=== PATIENT | male | born 1935 | race Caucasian/White ===

== ENCOUNTER 2017-06-20 11:26 | Outpatient (CLI) | payer MEDICARE, OTHER ==
[~2017-06-20] VITALS: Ht 181.6 cm; Wt 83.6 kg
--- NOTE | ~2017-06-20 | OP ---
PATIENT NAME: ROSAURA HOLT MEDICAL RECORD: [id number] :35 LOCATION:D.M2 D.2118 ADMISSION DATE: SURGEON: KYLE CUEVA MD OPERATION DATE: 06/20/17 DATE OF OPERATION: 06/20/2017 PREOPERATIVE DIAGNOSIS: Pacemaker generator at end of life. POSTOPERATIVE DIAGNOSIS: Pacemaker generator at end of life with fractured lead. PROCEDURE: Placement of single lumen pacemaker. SURGEON: Kyle Cueva MD. WEBSITE DESIGNER: None. BLOOD LOSS: Minimal. PROCEDURE IN DETAIL: This patient's pacemaker generator is at the end of life. I was asked by Dr. Mccann to change out the pacemaker generator. IV sedation was induced by the nursing staff under my direction. A local anesthetic was used to infiltrate the skin and subcutaneous tissues of the left chest after sterile prep and drape. I incised down to the pacemaker generator itself. I entered the pacemaker pocket. I delivered the pacemaker. However, we could not get the wrench to loosen up on the pacemaker wire. We tried a number of techniques and it took about 45 minutes, but we used a variety of curettes, Roverto wrenches, pacemaker wrenches even some neuro wrenches and despite all of these unorthodox attempts, we were unable to get the lead out. So, what we did was we fractured the clear part of the pacemaker generator at the top. We kept removing pieces of the plastic type material until we got down to the lead. By this time, the lead was fractured. We contacted Dr. Mccann and told him about this. I then went about placing a new lead. I kept off the pacemaker lead using one of the caps and I tied it in place. I then accessed the left subclavian vein in an antegrade fashion. A guidewire passed easily. A 7-English dilator sheath was advanced. The dilator and wire were removed. Through the sheath, I advanced a ventricular lead. I then formed the wire. I placed the lead in the pulmonary artery outflow tract. I then placed a straight wire through the lead and then pulled back the tip of the lead into the right ventricle and then was able to advance in to the apex of the right ventricle. Appropriate thresholds were obtained. I then sutured the lead in place with 2-0 TiCron times 2. Another 2-0 TiCron was used around the lead medially to prevent backbleeding. I then placed the pacemaker lead in the pacemaker generator. I tightened down on the lead. I could not dislodge the lead. I then irrigated in the subcutaneous pocket. Pacemaker was placed in subcutaneous pocket with care paid to place the leads posterior to the pacemaker. I then closed in multiple layers. The deep adipose tissue was closed with interrupted 3-0 Vicryls. Subcutaneous adipose tissue was closed with interrupted 3-0 Vicryls. The skin was closed with a running intracuticular 3-0 Vicryl. A sterile dressing was applied. The patient is going to be observed overnight in the hospital as a new pacemaker has been placed. OPERATIVE REPORT [id number] ROSAURA HOLT TRANSINT:[id number] Voice Confirmation ID: [id number] DOCUMENT ID: [id number] KYLE CUEVA MD CC: TEE ROTHMAN MD [id number] DICTATION DATE: 06/20/171958 INFORMATION TECHNOLOGY SECURITY ANALYST: 06/20/172218 [facility] [address] [place] [address]
--- NOTE | ~2017-06-20 | HEMODYNAMI ---
PATIENT:ROSAURA HOLT MEDICAL RECORD: [id number] : 35 LOCATION:D.CAT ADMISSION DATE: 06/20/17 Generatedon:06/20/201719:02 Patient name: ROSAURA HOLT Patient #: [id number] SSN: : 1935 Date of study: 06/20/2017 Page: Of Hemodynamic Procedure Report Patient Data Patient Demographics Procedure consent was obtained First Name: ROSAURA Gender: Male Last Name: JONATHON : 1935 Middle Initial: V Age: 82 year(s) Patient #: [id number] Race: Unknown Additional ID: [id number] Contact details [address]: [address] [place] [address] State: [place] City: [place] Zip code: [address] Admission Admission Data Admission Date: 06/20/2017 Admission Time: 11:26 Procedure Procedure Types Cath Procedure Diagnostic Procedure PPM/ICD PPM Ventricular Implant Procedure Description Procedure Date Procedure Date: 06/20/2017 Procedure Start Time: 17:30 Procedure End Time: 19:01 Procedure Staff Name Function Sam Dickson MD Assisting physician Subhash Collado RN Nurse Bautista Paniagua RT Scrub Atul Gordon RT Monitor Som Santizo MD Performing Physician Procedure Data Cath Procedure Fluoroscopy Diagnostic fluoroscopy Total fluoroscopy Time: 1.7 time: 1.7 min min Diagnostic fluoroscopy Total fluoroscopy dose: dose: 63.06 mGy 63.06 mGy Contrast Material Contrast Material Type Amount (ml) Isovue 300 0 Estimated blood loss: 5 ml Procedure Complications No complications Procedure Medications Medication Administration Route Dosage Oxygen NC 2 l/min Lidocaine 1% with added to field 20 ml Epi Bupivacaine 0.5% S.Q. 10 ml Vancomycin I.V.P.B 1 g Vancomycin Topical 1 g Irrigation Versed I.V. 1 mg Fentanyl I.V. 50 mcg Versed I.V. 1 mg Fentanyl I.V. 50 mcg Versed I.V. 1 mg Fentanyl I.V. 50 mcg Versed I.V. 1 mg Fentanyl I.V. 50 mcg Hemodynamics Rest Pre Cath Intra NCS Post Cath Vital Signs Time Heart Resp SPO2 NIBP (mmHg) Rhythm Pain Sedation Rate (ipm) (%) Status Level (bpm) 17:25:06 59 15 100 134/77(116) Paced 0 (11) 10(A) , No pain 17:29:16 60 17 99 117/71(101) Paced 0 (11) 10(A) , No pain 17:33:30 61 15 96 119/73(104) Paced 0 (11) 10(A) , No pain 17:37:34 53 16 96 107/69(92) Paced 0 (11) 10(A) , No pain 17:41:46 57 17 96 103/64(87) NSR 0 (11) 10(A) , No pain 17:46:00 59 14 95 109/55(79) NSR 0 (11) 10(A) , No pain 17:50:12 51 15 95 98/62(76) NSR 0 (11) 10(A) , No pain 17:54:22 56 16 96 105/57(80) NSR 0 (11) 10(A) , No pain 17:58:28 60 21 98 107/67(98) NSR 0 (11) 10(A) , No pain 18:02:42 64 16 96 98/62(87) NSR 0 (11) 10(A) , No pain 18:06:55 58 16 95 93/51(81) NSR 0 (11) 10(A) , No pain 18:11:05 53 15 96 113/54(85) NSR 0 (11) 9(A) , No pain 18:15:19 53 17 96 120/69(109) NSR 0 (11) 9(A) , No pain 18:19:33 57 14 95 112/61(89) NSR 0 (11) 9(A) , No pain 18:23:43 56 18 95 112/75(99) NSR 0 (11) 9(A) , No pain 18:27:53 54 18 95 116/66(103) NSR 0 (11) 9(A) , No pain 18:32:05 55 16 96 112/62(90) NSR 0 (11) 9(A) , No pain 18:36:17 49 14 96 117/69(107) NSR 0 (11) 9(A) , No pain 18:40:31 60 15 96 114/67(97) NSR 0 (11) 10(A) , No pain 18:44:45 60 16 96 116/68(99) NSR 0 (11) 10(A) , No pain 18:48:59 76 16 97 119/68(100) NSR 0 (11) 10(A) , No pain 18:53:11 98 134/76(116) NSR 0 (11) 10(A) , No pain 18:57:11 No Cuff NSR 0 (11) 10(A) , No pain 19:01:10 No Cuff NSR 0 (11) 10(A) , No pain Medications Time Medication Route Dose Verified Delivered Reason Notes Effectiv eness by by 17:20:05 Vancomycin I.V.P.B 1 g Buffie Sam used for Collado RN Breving procedure 17:21:17 Vancomycin Topical 1 g Buffie Sam used for Irrigation Collado RN Breving procedure 17:26:10 Oxygen NC 2 Buffie Buffie used for l/min Collado RN Collado sugar chipper machine operator 17:28:39 Versed I.V. 1 mg Buffie Buffie for Collado RN Collado RN sedation 17:28:48 Fentanyl I.V. 50 Buffie Buffie for mcg Collado RN Collado RN sedation 17:30:31 Lidocaine added 20 ml Buffie Buffie for local 1% with Epi to Collado RN Collado RN anesthetic field 17:30:48 Bupivacaine S.Q. 10 ml Buffie Sam for local 0.5% Collado RN Breving anesthetic 17:39:31 Versed I.V. 1 mg Buffie Buffie for Collado RN Collado RN sedation 17:39:36 Fentanyl I.V. 50 Buffie Buffie for mcg Collado RN Collado RN sedation 17:59:50 Versed I.V. 1 mg Buffie Buffie for Collado RN Collado RN sedation 17:59:54 Fentanyl I.V. 50 Buffie Buffie for mcg Collado RN Collado RN sedation 18:17:44 Versed I.V. 1 mg Buffie Buffie for Collado RN Collado RN sedation 18:17:48 Fentanyl I.V. 50 Buffie Buffie for mcg Collado RN Collado RN sedation Procedure Log Time Note 17:00:57 Atul MORALES(R) sent for patient. Start room use. 17:05:58 Time tracking: Regular hours 17:06:02 Plan of Care:Hemodynamics will remain stable., Cardiac rhythm will remain stable., Comfort level will be maintained., Respiratory function will remain adequate., Patient/ family verbilizes understanding of procedure., Procedure tolerated without complication., Recovers from procedure without complications.. 17:15:36 Patient received from Pre/Post Procedure Room to [facility] 3 Alert and oriented. Tansferred to table in Supine position. 17:15:37 Warm blankets applied, and cadence hugger turned on for patient comfort. 17:15:38 Correct patient and procedure confirmed by team. 17:15:39 Signed procedure consent form obtained from patient. 17:15:41 ECG and BP/O2 sat monitors applied to patient. 17:15:42 Full Disclosure recording started 17:20:05 Vancomycin 1 g I.V.P.B was administered by Sam Dickson MD; used for procedure; 17:21:17 Vancomycin Irrigation 1 g Topical was administered by Sam Dickson MD; used for procedure; 17:23:54 Vital chart was started 17:24:19 Rhythm: paced 17:24:40 H&P Date Dictated: 06/12/2017 Within 30 days and on chart., H&P Addendum completed by physician on day of procedure. (MUST COMPLETE FOR ALL OUTPATIENTS). 17:24:41 Pre-procedure instructions explained to patient. 17:24:41 Pre-op teaching completed and patient verbalized understanding. 17:24:44 Family in waiting room. 17:24:46 Patient NPO since Midnight. 17:24:49 Is the patient allergic to Iodine/contrast media? No. 17:25:20 Is patient on blood thinner?No 17:25:28 Patient diabetic? No. 17:25:31 Previous problem with sedation/anesthesia? No ? 17:25:34 Snore? Yes 17:25:35 Sleep apnea? No 17:25:36 Deviated septum? No 17:25:37 Opens mouth fully? Yes 17:25:39 Sticks out tongue? Yes 17:25:40 Airway obstruction? No ? 17:25:42 Dentures? No ? 17:25:46 Patient pain scale 0/10 ?. 17:25:55 Medtronic fundraising sale representative Ilan Garnica present for procedure. 17:26:10 Oxygen 2 l/min NC was administered by Subhash Collado RN; used for procedure; 17:26:14 IV patent on arrival in left forearm with 0.9% NaCl at [facility]. 17:26:15 Lab results completed and on chart. 17:26:20 Left chest area was prepped with chlora-prep and draped in sterile fashion 17:26:22 Alarms reviewed by R. N. 17::23 Sharps counted by scrub and verified by R.N. 17: --------ALL STOP TIME OUT------ 17:: Final Timeout: patient, procedure, and site verified with staff and physician. All members of the team are in agreement. 17::30 Left chest site verified by team. 17::36 Physical assessment completed. ASA score P 2 - A patient with mild systemic disease as per Sam Dickson MD. 17:26:39 Sedation plan: IV Moderate Sedation Versed, Fentanyl 17:27:12 Pre sharps counted by scrub and verified by RN: Sutures: 9 Sponges: 5 Stick needles: 0 Skin needles: 2 Blade: 1 Cautery: 1 17:27:20 Grounding pad site Left thigh. 17:27:21 Grounding pad site free from injury. 17:27:46 3.0 Vicryl Multipack [id number] opened to sterile field. 17:27:47 3.0 Vicryl Single Pack [id number] opened to sterile field. 17:28:02 Mepilex Dressing opened to sterile field. 17:28:39 Versed 1 mg I.V. was administered by Subhash Collado RN; for sedation; 17::48 Fentanyl 50 mcg I.V. was administered by Subhash Collado RN; for sedation; 17:30:31 Lidocaine 1% with Epi 20 ml added to field was administered by Subhash Collado RN; for local anesthetic; 17:30:44 Procedure started. 17:30:48 Bupivacaine 0.5% 10 ml S.Q. was administered by Sam Dickson MD; for local anesthetic; 17:31:14 Lidocaine 1% w/epi and Bupivacaine 0.5% to left subclavicular area by Sam Dickson MD. 17:31:49 Incision made to left subclavicular area. 17:34:14 Stagend.coma PPM Single Generator opened to sterile field. 17:35:14 Generator pocket made/opened. 17:39:31 Versed 1 mg I.V. was administered by Subhash Collado RN; for sedation; 17:39:36 Fentanyl 50 mcg I.V. was administered by Subhash Collado RN; for sedation; 17:53:46 Difficulty in removing Lead from Generator. Retrieving another tray from sterile processing, in attempt to find a larger screwdriver to loosen the lead from old generator. 17:59:50 Versed 1 mg I.V. was administered by Subhash Collado RN; for sedation; 17:59:54 Fentanyl 50 mcg I.V. was administered by Subhash Collado RN; for sedation; 18:17:44 Versed 1 mg I.V. was administered by Subhash Collado RN; for sedation; 18:17:48 Fentanyl 50 mcg I.V. was administered by Subhash Collado RN; for sedation; 18:24:25 Lead was damaged in attempt to remove from old generator. Moving forward in gaining subclavian access and placing new lead. 18:24:37 Left subclavian vein accessed with 7Fr Safe Sheath. 18:26:50 Ventricular lead inserted and advanced. 18:28:19 Medtronic 4092-52 PPM Lead opened to sterile field. 18:29:44 Peel-a-way sheath was split and removed. 18:29:53 Ventricular lead positioned. 18:30:52 Ventricular lead tested. 18:34:15 2.0 Ticron Multipack opened to sterile field. 18:34:31 Ventricular lead attachment was completed with 2-0 ticron. 18:34:35 Old V lead capped and placed into pocket. 18:35:24 PPM Single was attached to lead(s) and inserted into pocket. 18:35:28 Generator was sutured in place with 2-0 ticron. 18:38:01 Device pocket was irrigated with Vancomycin. 18:38:18 Subcutaneous closure was completed with 3-0 vicryl. 18:38:34 Parameters-- Generator: Mode: Demand. Lower Rate: 60bpm. Upper Rate: 130bpm. 18:38:59 Parameters--Ventricular P/R Wave: 13.8mV. Current: 0.1mA; Threshold: 0.5V; Impedence: 577OHMS. 18:40:23 Skin closure was completed with 3-0 vicryl. 18:47:49 Lt Chest incision was dressed with Mepilex dressing. 18:48:18 Procedure ended.(Physican Out) 18:52:42 Fluoroscopy time 01.70 minutes. 18:52:46 Fluoroscopy dose: 63.06 mGy 18:52:46 Flurop Dose total: 63.06 18:52:49 Contrast amount:Isovue 300 0ml. 18:52:55 Sharps counted by scrub and verified by R.N. 18:53:18 Post sharps counted by scrub and verified by RN: Sutures: 14 Sponges: 5 Stick needles: 1 Skin needles: 2 Blade: 1 Cautery: 1 18:53:35 Insertion/operative site no bleeding no hematoma. 18:53:39 Post Procedure Pulses reassessed and unchanged 18:53:44 Post-procedure physical assessment completed. ASA score P 2 - A patient with mild systemic disease as per Sam Dickson MD. 18:53:46 Post procedure rhythm: paced 18:53:51 Estimated blood loss: 5 ml 18:53:53 Post procedure instruction explained to patient.Patient verbalizes understanding. 18:53:53 Patient needs reinforcement of post procedure teaching. 19:00:43 Procedure type changed to Cath procedure, Diagnostic procedure, PPM/ICD, PPM Ventricular Implant 19:00:55 Vital chart was stopped 19:01:11 Procedure Complication : No complications 19:01:36 Procedure and supply charges have been captured, reviewed, submitted and are correct. 19:01:38 See physician's report for complete and final results. 19:01:39 Report given to PCU. 19:01:44 Patient transfered to PCU with Bed. 19:01:46 Procedure ended. 19:01:46 Full Disclosure recording stopped 19::53 End room use (Document Last) Device Usage Item Name Manufacture Quantity Catalog Hospital Part Current Minimal Lo t# / Number Charge Number Stock Stock Serial# Code 3.0 Ethicon 1 [id number] 5 Vicryl Multipack [id number] 3.0 Ethicon 1 [id number] 367031 192563 5 Vicryl Single Pack [id number] Mepilex Cardinal 1 [id number] [id number] [id number] 5 [facility] Medtronic Medtronic 1 [id number] [id number] 5 NW [id number] Adapta EX P PPM Single Generator Medtronic Medtronic 1 [id number] 072465 766371 5 LE [id number] EX P PPM Lead 2.0 Ethicon 7 [id number] 164261 43544 386866 5 Ticron Multipack Signature Audit [place] Stage Time Signature Unsigned Intra-Procedure 06/20/2017 Atul Gordon 7:02:30 PM RT(R) Signatures Monitor : Atul Gordon RT Signature : Date : Time : [address] [address]
[2017-06-20] MEDS ORDERED: LISINOPRIL5 MG PO (11:57)
[2017-06-20] MEDS ORDERED: ZOCOR40 MG PO (11:58)
[2017-06-20] MEDS ORDERED: GLUCOPHAGE500 MG PO (11:58)
[2017-06-20] MEDS ORDERED: BAYER CHEWABLE81 MG PO (11:59)
[2017-06-20] MEDS ORDERED: MULTIPLE VITAMI1 TA1 PO (12:00)
[2017-06-20 12:21] VITALS: BP 112/68; BMI 25.3
[2017-06-20 12:23] LABS: HEMATOCRIT 38.8 % (42.0-54.0); HEMOGLOBIN 12.8 g/dL (13.5-17.5); MCH 31.3 pg (26.0-34.0); MCV 94.9 fL (80.0-100.0); MEAN PLATELET VOLUME 9.8 fL (7.4-10.4); RBC 4.09 10x6/uL (4.20-6.10); RDW 12.9 % (11.5-14.5); WBC 5.3 10x3/uL (4.8-10.8)
[2017-06-20 12:42] LABS: CALC OSMOLALITY 283 mosm/kg (275-300); CALCIUM 8.4 mg/dL (8.5-10.1); CHLORIDE - SERUM 106 mmol/L (98-107); CREATININE - SERUM 0.7 mg/dL (0.6-1.3); GLUCOSE 96 mg/dL (74-106); POTASSIUM - SERUM 4.3 mmol/L (3.5-5.1); SODIUM 141 mmol/L (136-145); UREA NITROGEN 21 mg/dL (7-18); eGFR NON AFRICAN AMERICAN > 90 mL/min (90-120)
[2017-06-20 12:52] LABS: APTT 27.9 SECONDS (22.8-39.4); INR 1.01 (0.85-1.17); PROTIME 13.2 SECONDS (11.6-15.0)
--- NOTE | 2017-06-20 19:56 | NUR ---
ARRIVED TO UNIT POST PACEMAKER PLACEMENT. MONIOTR SHOWS AFIB WITH PACED @ 60. L CHEST DRESSING CLEAN AND DRY. IV INFUSING WELL. L ARM IN SLING. AWAKE AND ALERT.
[2017-06-20 20:38] VITALS: BP 135/73; Ht 181.6 cm; Wt 83.6 kg
[2017-06-21 00:17] VITALS: BP 100/56
[2017-06-21 04:46] VITALS: BP 101/63
--- NOTE | 2017-06-21 05:29 | NUR ---
PT HAS BEEN SLEEPING. NO CHANGE IN MONITOR. DRESSING REMAINS CLEAN AND DRY.
[2017-06-21 08:19] VITALS: BP 120/68
[2017-06-21] MEDS ORDERED: HYDROCODON-ACE1 EAC7 PO (09:18)
--- NOTE | 2017-06-21 11:04 | NUR ---
IV AND TELEMETRY DCD. DC PLANS GIVEN. UNDERSTANDING VOICED. ESCORTED TO CAR BY W/C.
== END 2017-06-21 11:05 | disposition home or self-care (01) ==
LOC: D.CATH 11:26 → D.M2 19:17 → D.CATH 06-21 11:05
PROVIDERS: Internal Medicine Cardiovascular Disease
DX: Z45.010 Encounter for checking and testing of cardiac pacemaker pulse generator [battery] (principal); T82.110A Breakdown (mechanical) of cardiac electrode, initial encounter; Z01.812 Encounter for preprocedural laboratory examination

== ENCOUNTER 2018-01-06 08:10 | Emergency (ER) | payer MEDICARE, OTHER ==
[2017-06-20 20:38] VITALS: BMI 25.3
[~2018-01-06 08:10] MED LIST: BAYER CHEWABLE81 MG PO; GLUCOPHAGE500 MG PO; HYDROCODON-ACE1 EAC7 PO; LISINOPRIL5 MG PO; MULTIPLE VITAMI1 TA1 PO; ZOCOR40 MG PO
== END 2018-01-06 09:00 | disposition home or self-care (01) ==
LOC: D.ER 08:10
DX: S52.531A Colles' fracture of right radius, initial encounter for closed fracture (principal); W19.XXXA Unspecified fall, initial encounter; Y93.9 Activity, unspecified; Y92.019 Unspecified place in single-family (private) house as the place of occurrence of the external cause; E11.9 Type 2 diabetes mellitus without complications; I10 Essential (primary) hypertension

== ENCOUNTER 2018-01-08 09:16 | Emergency (ER) | payer MEDICARE, OTHER ==
[2017-06-20 20:38] VITALS: BMI 25.3
== END 2018-01-08 11:26 | disposition left against medical advice (07) ==
LOC: D.ER 09:16
DX: S69.91XA Unspecified injury of right wrist, hand and finger(s), initial encounter (principal); X58.XXXA Exposure to other specified factors, initial encounter; Y93.9 Activity, unspecified; Y92.9 Unspecified place or not applicable

== ENCOUNTER 2018-05-18 07:23 | Emergency (ER) | payer MEDICARE, OTHER ==
[~2018-05-18] VITALS: Ht 181.6 cm; Wt 75.0 kg
[2018-05-18 07:33] VITALS: Ht 181.6 cm; Wt 75.0 kg
[2018-05-18 09:01] VITALS: BP 130/78
== END 2018-05-18 09:00 | disposition home or self-care (01) ==
LOC: D.ER 07:23
DX: K59.00 Constipation, unspecified (principal)

== ENCOUNTER 2018-06-28 19:52 | Emergency (ER) | payer MEDICARE, OTHER ==
[~2018-06-28] VITALS: Ht 181.6 cm; Wt 86.4 kg
[2018-06-28 20:01] VITALS: Ht 181.6 cm; Wt 86.4 kg
[2018-06-28 21:01] LABS: BASOPHILS 0.7 % (0-2); EOSINOPHILS 7.7 % (0-7); HEMATOCRIT 39.9 % (42.0-54.0); HEMOGLOBIN 13.6 g/dL (13.5-17.5); IMMATURE GRANULOCYTES 0.1 % (0-5); LYMPHOCYTES 32.2 % (15-50); MCH 32.3 pg (26.0-34.0); MCHC 34.1 g/dL (31.0-37.0); MCV 94.8 fL (80.0-100.0); MEAN PLATELET VOLUME 9.5 fL (7.4-10.4); MONOCYTES 10.7 % (2-11); NEUTROPHILS 48.6 % (40-80); PLATELET COUNT 174 10x3/uL (130-400); RBC 4.21 10x6/uL (4.20-6.10); RDW 12.9 % (11.5-14.5); WBC 6.7 10x3/uL (4.8-10.8)
[2018-06-28 21:46] LABS: ALBUMIN 3.6 g/dL (3.4-5.0); ANION GAP 9.6 mmol/L (8-16); BILIRUBIN - TOTAL 0.9 mg/dL (0.2-1.3); CALCIUM 8.7 mg/dL (8.5-10.1); CARBON DIOXIDE 31.6 mmol/L (21.0-32.0); CREATININE - SERUM 1.2 mg/dL (0.6-1.3); POTASSIUM - SERUM 4.2 mmol/L (3.5-5.1); PROTEIN - SERUM 6.7 g/dL (6.4-8.2)
[2018-06-28] MEDS ORDERED: MIRALAX527 GM PO (23:38)
[2018-06-28] MEDS ORDERED: STOOL SOFTENER240 MG PO (23:43)
[2018-06-28 23:54] VITALS: BP 132/78
== END 2018-06-28 23:54 | disposition home or self-care (01) ==
LOC: D.ER 19:52
PROVIDERS: Family Medicine
DX: K59.00 Constipation, unspecified (principal); I10 Essential (primary) hypertension

== ENCOUNTER 2019-03-24 04:44 | Emergency (ER) | payer MEDICARE, OTHER ==
[~2019-03-24] VITALS: Ht 181.6 cm; Wt 79.4 kg
[~2019-03-24 04:44] MED LIST changes: +MIRALAX527 GM PO; +STOOL SOFTENER240 MG PO
[2019-03-24 04:50] VITALS: Ht 181.6 cm; Wt 79.4 kg
[2019-03-24 05:41] LABS: BASOPHILS 0.7 % (0-2); EOSINOPHILS 8.5 % (0-7); HEMATOCRIT 39.7 % (42.0-54.0); HEMOGLOBIN 13.8 g/dL (13.5-17.5); IMMATURE GRANULOCYTES 0.2 % (0-5); LYMPHOCYTES 29.6 % (15-50); MCHC 34.8 g/dL (31.0-37.0); MCV 92.1 fL (80.0-100.0); MEAN PLATELET VOLUME 9.5 fL (7.4-10.4); MONOCYTES 13.1 % (2-11); NEUTROPHILS 47.9 % (40-80); RBC 4.31 10x6/uL (4.20-6.10); RDW 12.6 % (11.5-14.5); WBC 5.5 10x3/uL (4.8-10.8)
[2019-03-24 05:46] LABS: PLATELET COUNT 138 10x3/uL (130-400)
[2019-03-24 06:02] LABS: ALBUMIN 3.9 g/dL (3.4-5.0); ANION GAP 13.8 mmol/L (8-16); BILIRUBIN - TOTAL 0.76 mg/dL (0.2-1.3); CALCIUM 8.7 mg/dL (8.5-10.1); CARBON DIOXIDE 26.1 mmol/L (21.0-32.0); CREATININE - SERUM 1.1 mg/dL (0.6-1.3); POTASSIUM - SERUM 3.9 mmol/L (3.5-5.1); PROTEIN - SERUM 6.8 g/dL (6.4-8.2)
[2019-03-24 06:11] LABS: TROPONIN-I 0.018 ng/mL (0.000-0.060)
[2019-03-24] MEDS ORDERED: SELENIUM SULFI118 ML TP (06:11)
[2019-03-24 06:29] VITALS: BP 138/84
== END 2019-03-24 06:30 | disposition home or self-care (01) ==
LOC: D.ER 04:44
PROVIDERS: Family Medicine
DX: L20.9 Atopic dermatitis, unspecified (principal)

== ENCOUNTER 2019-05-21 01:39 | Emergency (ER) | payer MEDICARE, OTHER ==
[~2019-05-21] VITALS: Ht 181.6 cm; Wt 80.9 kg
[~2019-05-21 01:39] MED LIST changes: +SELENIUM SULFI118 ML TP
[2019-05-21 01:43] VITALS: Ht 181.6 cm; Wt 80.9 kg
[2019-05-21 02:07] LABS: BASOPHILS 0.3 % (0-2); HEMATOCRIT 36.7 % (42.0-54.0); HEMOGLOBIN 12.6 g/dL (13.5-17.5); IMMATURE GRANULOCYTES 0.1 % (0-5); LYMPHOCYTES 26.9 % (15-50); MCH 32.2 pg (26.0-34.0); MCHC 34.3 g/dL (31.0-37.0); MCV 93.9 fL (80.0-100.0); MEAN PLATELET VOLUME 9.5 fL (7.4-10.4); MONOCYTES 11.3 % (2-11); NEUTROPHILS 53.4 % (40-80); PLATELET COUNT 131 10x3/uL (130-400); RBC 3.91 10x6/uL (4.20-6.10); RDW 13.3 % (11.5-14.5); WBC 8.6 10x3/uL (4.8-10.8)
[2019-05-21 02:16] LABS: ALBUMIN 3.6 g/dL (3.4-5.0); ALKALINE PHOSPHATASE 83 U/L (46-116); ALT (SGPT) 20 U/L (10-68); BILIRUBIN - TOTAL 0.58 mg/dL (0.2-1.3); CALC OSMOLALITY 290 mosm/kg (275-300); CALCIUM 8.8 mg/dL (8.5-10.1); CARBON DIOXIDE 28.3 mmol/L (21.0-32.0); CHLORIDE - SERUM 107 mmol/L (98-107); GLUCOSE 106 mg/dL (74-106); POTASSIUM - SERUM 3.8 mmol/L (3.5-5.1); PROTEIN - SERUM 6.4 g/dL (6.4-8.2); SODIUM 144 mmol/L (136-145); UREA NITROGEN 24 mg/dL (7-18); eGFR NON AFRICAN AMERICAN 76 mL/min (90-120)
[2019-05-21] MEDS ORDERED: METFORMIN HCL500 M1 PO (02:27)
[2019-05-21] MEDS ORDERED: MEDROL DOSE PACK4 MG PO (02:27)
[2019-05-21] MEDS ORDERED: ZPAK PO (02:27)
[2019-05-21 03:10] VITALS: BP 130/79
== END 2019-05-21 03:10 | disposition home or self-care (01) ==
LOC: D.ER 01:39
PROVIDERS: Family Medicine
DX: J40 Bronchitis, not specified as acute or chronic (principal)

== ENCOUNTER 2019-07-10 10:12 | Emergency (ER) | payer MEDICARE, OTHER ==
[~2019-07-10] VITALS: Ht 181.6 cm; Wt 81.8 kg
[~2019-07-10 10:12] MED LIST changes: +MEDROL DOSE PACK4 MG PO; +METFORMIN HCL500 M1 PO; +ZPAK PO
[2019-07-10 10:14] VITALS: Ht 181.6 cm; Wt 81.8 kg
[2019-07-10] MEDS ORDERED: PEPCID AC20 MG PO (10:48)
[2019-07-10] MEDS ORDERED: PREDNISONE20 MG PO (10:48)
[2019-07-10] MEDS ORDERED: BENADRYL25 MG PO (10:48)
[2019-07-10] MEDS ORDERED: MINOCYCLINE HCL75 M1 PO (11:35)
[2019-07-10 11:57] VITALS: BP 134/82
== END 2019-07-10 11:58 | disposition home or self-care (01) ==
LOC: D.ER 10:12
DX: T78.40XA Allergy, unspecified, initial encounter (principal); L03.116 Cellulitis of left lower limb; I10 Essential (primary) hypertension; E11.9 Type 2 diabetes mellitus without complications

== ENCOUNTER 2019-12-07 11:07 | Emergency (ER) | payer OTHER ==
[~2019-12-07] VITALS: Ht 181.6 cm; Wt 83.6 kg
[~2019-12-07 11:07] MED LIST changes: +BENADRYL25 MG PO; +MINOCYCLINE HCL75 M1 PO; +PEPCID AC20 MG PO; +PREDNISONE20 MG PO
[2019-12-07 11:24] VITALS: Ht 181.6 cm; Wt 83.6 kg
[2019-12-07 12:06] LABS: APPEARANCE CLEAR (CLEAR); BILIRUBIN NEGATIVE (NEGATIVE); COLOR YELLOW (YELLOW); GLUCOSE NEGATIVE (NEGATIVE); KETONE NEGATIVE (NEGATIVE); NITRITE NEGATIVE (NEGATIVE); PROTEIN NEGATIVE (NEGATIVE); SPECIFIC GRAVITY 1.015 (1.005-1.020); UROBILINOGEN NORMAL (NORMAL)
[2019-12-07 12:29] LABS: BASOPHILS 0.3 % (0-2); EOSINOPHILS 3.8 % (0-7); HEMATOCRIT 42.4 % (42.0-54.0); HEMOGLOBIN 14.2 g/dL (13.5-17.5); IMMATURE GRANULOCYTES 0.1 % (0-5); LYMPHOCYTES 23.2 % (15-50); MCHC 33.5 g/dL (31.0-37.0); MCV 95.5 fL (80.0-100.0); MEAN PLATELET VOLUME 9.5 fL (7.4-10.4); MONOCYTES 10.4 % (2-11); NEUTROPHILS 62.2 % (40-80); RBC 4.44 10x6/uL (4.20-6.10); RDW 12.4 % (11.5-14.5)
[2019-12-07 12:30] LABS: PLATELET COUNT 173 10x3/uL (130-400)
[2019-12-07 12:37] LABS: CALC OSMOLALITY 281 mosm/kg (275-300); CARBON DIOXIDE 30.6 mmol/L (21.0-32.0); CHLORIDE - SERUM 104 mmol/L (98-107); CREATININE - SERUM 0.9 mg/dL (0.6-1.3); GLUCOSE 84 mg/dL (74-106); POTASSIUM - SERUM 4.1 mmol/L (3.5-5.1); SODIUM 141 mmol/L (136-145); UREA NITROGEN 17 mg/dL (7-18); eGFR NON AFRICAN AMERICAN 85 mL/min (90-120)
[2019-12-07 12:43] LABS: ALBUMIN 3.8 g/dL (3.4-5.0); ALKALINE PHOSPHATASE 73 U/L (46-116); ALT (SGPT) 22 U/L (10-68); BILIRUBIN - TOTAL 0.56 mg/dL (0.2-1.3); PROTEIN - SERUM 7.1 g/dL (6.4-8.2)
[2019-12-07] MEDS ORDERED: ANTIVERT12.5 MG PO (12:59)
[2019-12-07 13:17] VITALS: BP 120/78
== END 2019-12-07 13:18 | disposition home or self-care (01) ==
LOC: D.ER 11:07
PROVIDERS: Emergency Medicine
DX: H81.10 Benign paroxysmal vertigo, unspecified ear (principal); E11.9 Type 2 diabetes mellitus without complications; Z79.84 Long term (current) use of oral hypoglycemic drugs; Z86.73 Personal history of transient ischemic attack (TIA), and cerebral infarction without residual deficits; I10 Essential (primary) hypertension; Z95.0 Presence of cardiac pacemaker

== ENCOUNTER 2020-09-04 08:53 | Emergency (ER) | payer OTHER ==
[~2020-09-04] VITALS: Ht 181.6 cm; Wt 78.2 kg
[~2020-09-04 08:53] MED LIST changes: +ANTIVERT12.5 MG PO
[2020-09-04 09:18] VITALS: BP 150/73; Ht 181.6 cm; Wt 78.2 kg
== END 2020-09-04 10:06 | disposition home or self-care (01) ==
LOC: D.ER 08:53
DX: H02.823 Cysts of right eye, unspecified eyelid (principal); E11.9 Type 2 diabetes mellitus without complications; Z79.84 Long term (current) use of oral hypoglycemic drugs; I10 Essential (primary) hypertension; Z95.0 Presence of cardiac pacemaker

== ENCOUNTER 2021-05-28 08:21 | Emergency (ER) | payer OTHER ==
[~2021-05-28] VITALS: Ht 181.6 cm; Wt 78.6 kg
[2021-05-28 08:24] VITALS: BP 133/77; Ht 181.6 cm; Wt 78.6 kg
[2021-05-28 09:07] LABS: BASOPHILS 0.8 % (0-2); EOSINOPHILS 9.7 % (0-7); HEMATOCRIT 39.8 % (42.0-54.0); HEMOGLOBIN 13.4 g/dL (13.5-17.5); LYMPHOCYTES 22.8 % (15-50); MCH 31.8 pg (26.0-34.0); MCHC 33.7 g/dL (31.0-37.0); MCV 94.2 fL (80.0-100.0); MEAN PLATELET VOLUME 7.4 fL (7.4-10.4); MONOCYTES 11.2 % (2-11); NEUTROPHILS 55.5 % (40-80); PLATELET COUNT 191 10x3/uL (130-400); RBC 4.22 10x6/uL (4.20-6.10); RDW 13.4 % (11.5-14.5); WBC 6.5 10x3/uL (4.8-10.8)
[2021-05-28 09:14] LABS: CALC OSMOLALITY 281 mosm/kg (275-300); CALCIUM 8.5 mg/dL (8.5-10.1); CARBON DIOXIDE 27.6 mmol/L (21.0-32.0); CHLORIDE - SERUM 105 mmol/L (98-107); CREATININE - SERUM 0.8 mg/dL (0.6-1.3); GLUCOSE 99 mg/dL (74-106); SODIUM 140 mmol/L (136-145); UREA NITROGEN 21 mg/dL (7-18); eGFR NON AFRICAN AMERICAN > 90 mL/min (90-120)
[2021-05-28 09:20] LABS: ALBUMIN 3.7 g/dL (3.4-5.0); ALKALINE PHOSPHATASE 84 U/L (30-120); ALT (SGPT) 21 U/L (10-68); BILIRUBIN - TOTAL 0.75 mg/dL (0.2-1.3); LIPASE 87 U/L (73-393); PROTEIN - SERUM 6.9 g/dL (6.4-8.2)
[2021-05-28 09:26] LABS: BACTERIA FEW HPF (<MOD); BILIRUBIN NEGATIVE (NEGATIVE); GRANULAR CAST 4 LPF (0-1); KETONE NEGATIVE mg/dL (< 1+); NITRITE NEGATIVE (NEGATIVE); PH 6.5 (5.0-8.0); UROBILINOGEN NORMAL mg/dL (< 2); WHITE CELLS - URINE 3 HPF (0-1)
== END 2021-05-28 11:03 | disposition home or self-care (01) ==
LOC: D.ER 08:21
PROVIDERS: Emergency Medicine
DX: R63.4 Abnormal weight loss (principal); I10 Essential (primary) hypertension; E11.9 Type 2 diabetes mellitus without complications; Z86.73 Personal history of transient ischemic attack (TIA), and cerebral infarction without residual deficits; Z95.0 Presence of cardiac pacemaker; Z79.84 Long term (current) use of oral hypoglycemic drugs